=== PATIENT | female | born 1975 | race Two or more races ===

== ENCOUNTER 2021-08-03 12:30 | Inpatient (IN) | payer OTHER ==
[~2021-08-03] VITALS: Ht 165.1 cm; Wt 94.3 kg
[2021-08-04] MEDS ORDERED: TOPROL XL25 M1 PO (08:09)
[2021-08-04] MEDS ORDERED: LEXAPRO5 MG PO (08:10)
[2021-08-04] MEDS ORDERED: COZAAR100 MG PO (08:10)
[2021-08-05] MEDS ORDERED: ESCITALOPRAM OX10 MG (15:19)
== END 2021-08-06 20:36 | disposition home or self-care (01) | DRG 743 ==
LOC: O/R 08-04 06:50 → OB/GYN 08-04 06:50 → SURH 08-04 12:30 → OB/GYN 08-04 20:32
PROVIDERS: ADMIT Specialist; ATTEND Specialist
PROC: 0UB00ZZ Excision of Right Ovary, Open Approach (ICD-10-PCS; 2021-08-04)
PROC: 0UT90ZZ Resection of Uterus, Open Approach (ICD-10-PCS; principal; 2021-08-04 15:00)
DX: D27.0 Benign neoplasm of right ovary (principal); N80.0 Endometriosis of uterus; N87.9 Dysplasia of cervix uteri, unspecified; N84.0 Polyp of corpus uteri; D26.1 Other benign neoplasm of corpus uteri; I10 Essential (primary) hypertension; N93.9 Abnormal uterine and vaginal bleeding, unspecified